=== PATIENT | male | born 1960 | race Caucasian/White ===

== ENCOUNTER → 2017-01-11 | Outpatient (CLI) | payer BC ==
[~2017-01-11] MED LIST: OXYC-57 PO
[2017-01-11 13:02] LABS: HEMATOCRIT 40.8 % (42-52); MEAN CELL VOLUME 88.3 fL (80-100); MEAN CORPUSCULAR HEMOGLOBIN 29.7 pg (25-34); MEAN CORPUSCULAR HGB CONC 33.6 g/dl (32-36); MEAN PLATELET VOLUME 10.3 fL (7.4-10.4); PLATELET COUNT 230 K/uL (130-400); RED BLOOD COUNT 4.62 M/uL (4.7-6.1); WHITE BLOOD COUNT 7.75 K/uL (4.8-10.8)
[2017-01-11 13:19] LABS: URINE APPEARANCE CLEAR (CLEAR); URINE BILIRUBIN NEG (NEG); URINE COLOR YELLOW; URINE NITRITE NEG (NEG); URINE PH 6.5 (4.5-7.5); URINE SPECIFIC GRAVITY 1.025 (1.000-1.030); UROBILINOGEN NEG (NEG)
[2017-01-11 13:20] LABS: MANUAL MICROSCOPIC REQUIRED? NO; REVIEW REQ? NO
[2017-01-11 13:34] LABS: ESTIMATED AVERAGE GLUCOSE 143 mg/dl; HA1C FLAG Normal (Normal)
[2017-01-11 13:37] LABS: ALT/SGPT 22 U/L (12-78); AST/SGOT 14 U/L (15-37); BLOOD UREA NITROGEN 20 mg/dl (7-18); BUN/CREATININE RATIO 29.1 (10-20); CALCIUM 8.3 mg/dl (8.5-10.1); CARBON DIOXIDE 24 mmol/L (21-32); CHLORIDE 109 mmol/L (98-107); CREATININE 0.67 mg/dl (0.60-1.40); GLUCOSE 105 mg/dl (70-99); POTASSIUM 3.9 mmol/L (3.5-5.1); SODIUM 141 mmol/L (136-145)
[2017-01-11 13:48] LABS: ALKALINE PHOSPHATASE 72 U/L (45-117); CHOLESTEROL 167 mg/dl (0-200); CHOLESTEROL/HDL RATIO 2.4; HDL CHOLESTEROL 69 mg/dl; LDL CHOLESTEROL CALCULATED 86 mg/dl; TRIGLYCERIDES 60 mg/dl (0-150); VERY LOW DENSITY LIPOPROT CALC 12 mg/dl
== END | disposition home or self-care (01) ==
LOC: C.LABMFLN 07:58
PROVIDERS: ATTEND Nurse Practitioner Family
DX: R53.83 Other fatigue (principal); F33.9 Major depressive disorder, recurrent, unspecified; M79.1 Myalgia; E78.5 Hyperlipidemia, unspecified; R73.01 Impaired fasting glucose

== ENCOUNTER 2024-07-11 08:29 | Observation (INO) ==
--- NOTE | 2024-06-16 15:19 | PAT Medication Instructions ---
Medication Instructions Date of Service June 16, 2024 Home Medications cholecalciferol (vitamin D3) 125 mcg (5,000 unit) tablet 125 mcg PO QAM metformin 500 mg tablet 1,000 mg PO BID rosuvastatin 40 mg tablet (Crestor) 20 mg PO QAM fluoxetine 20 mg capsule 20 mg PO QAM metoprolol succinate 50 mg tablet,extended release 24 hr 50 mg PO QAM apixaban 5 mg tablet (Eliquis) 5 mg PO BID bupropion HCl 100 mg tablet 100 mg PO QAM ASK your prescriber and surgeon apixaban 5 mg tablet (Eliquis) 5 mg PO BID DO NOT take the morning of surgery cholecalciferol (vitamin D3) 125 mcg (5,000 unit) tablet 125 mcg PO QAM metformin 500 mg tablet 1,000 mg PO BID Take morning of surgery With a small sip of water, OTHERWISE NOTHING TO EAT OR DRINK AFTER MIDNIGHT: rosuvastatin 40 mg tablet (Crestor) 20 mg PO QAM fluoxetine 20 mg capsule 20 mg PO QAM metoprolol succinate 50 mg tablet,extended release 24 hr 50 mg PO QAM bupropion HCl 100 mg tablet 100 mg PO QAM Take evening before surgery metformin 500 mg tablet 1,000 mg PO BID Other Notes If you have any questions please call us at [phone] or [phone] or [phone] or [phone]
--- NOTE | 2024-06-19 10:56 | Anesthesiology Consultation ---
Date of Service June 19, 2024 Assessment & Plan (1) Encounter for pre-operative examination: - Check BSG DOS - Infectious disease screening: Per assessment on 06/19/24- No known recent infectious disease contacts or current infectious disease symptoms. - Outpatient joint assessment: Pt currently scheduled for inpatient pathway. If surgeon requests review for outpatient joint pathway, patient is not recommended candidate for outpatient joint program from anesthesia standpoint based on available information. - S/P Right shoulder arthroscopy, RCR (06/01/22): LMA#5.0 [place] [facility] [place] Eliquis instructions: Per surgeon/prescriber. Per cardiology visit 06/09/24, "he can stop his anticoagulation 2 days before surgery and reinitiated when the risk of bleeding is acceptable understanding that he will be fully therapeutic within 2 hours of taking his first dose of Eliquis postoperatively." - Cardiology visit (06/09/24): "He is wearing his CPAP and is compliant with it. He notes he feels better with CPAP. He has had paroxysmal atrial fibrillation and is asymptomatic.. If his blood sugars remain elevated he would be a good candidate for an SGLT 2 inhibitor.. With regards to his shoulder surgery he can proceed at intermediate risk. I believe his risk is in the range of 2 to 3% and this includes heart attack, dying from cardiac causes, arrhythmias, and congestive heart failure. His greatest risk.. Can be asymptomatic afib with a rapid ventricular response." Chart Review Chart Review: Acceptable Risk for Surgery and Patient seen in Pre Admission Testing Teaching & Discussion Pre-Anesthesia Teaching/Discussion Notes: Instructed NPO after midnight before surgery,except medications with 15 cc of water. Medication instructions provided according to the PAT guidelines. History Surgery Operation Date: 07/11/24 08:00 Proposed Procedures p Left Total Shoulder Arthroplasty Reverse - Brayden Neff DO Height/Weight Height: 5 ft 7 in Weight: 97.9 kg Allergies Allergy/AdvReac Type Severity Reaction Status Date / Time No Known Allergies Allergy Verified 06/16/24 12:22 Medications Home Medications Medication Instructions Recorded Confirmed Last Taken cholecalciferol (vitamin D3) 125 125 mcg PO QAM 09/22/19 06/16/24 12/09/22 mcg (5,000 unit) tablet metformin 500 mg tablet 1,000 mg PO BID 10/30/19 06/16/24 12/09/22 rosuvastatin 40 mg tablet (Crestor) 20 mg PO QAM 10/27/20 06/16/24 12/09/22 fluoxetine 20 mg capsule 20 mg PO QAM 05/25/22 06/16/24 12/09/22 metoprolol succinate 50 mg 50 mg PO QAM 05/25/22 06/16/24 12/09/22 tablet,extended release 24 hr apixaban 5 mg tablet (Eliquis) 5 mg PO BID 06/16/24 06/16/24 Unknown bupropion HCl 100 mg tablet 100 mg PO QAM 06/16/24 06/16/24 Unknown Past Medical History Medical History (Updated 06/23/24 @ 08:34 by Gretta Arteaga) Anxiety Benign essential hypertension Noted per records Patient denies, indicates that current BP-related meds are for a. fib Diabetes History of atrial fibrillation Dx ~[address] Poole History of depression Hyperlipidemia Mitral insufficiency Echo 11/2023: Thickened mitral valve leaflets with bileaflet prolapse with mild to moderate mitral valve regurgitation, primarily in the first 2/3 of systole Sleep apnea CPAP (compliant) Exercise / Class Metabolic Activity II 4-5 Yardwork/Stairs/Walk up hill (one FS: No CP, no SOB) Past Family History Family History Father Heart disease Cancer Mother Parkinson disease Other Family history of atrial fibrillation No family history of adverse response to anesthesia Past Surgical History Surgical History H/O knee surgery right History of hernia repair left x 2 History of repair of right rotator cuff Right shoulder arthroscopy, RCR (06/01/22): LMA#5.0 + [place] [facility] [place] History of tonsillectomy and adenoidectomy Hx of colonoscopy Past Anesthesia History No Hx of Anesthesia Complications and No Family Hx of Anesthesia Complications History of PONV No Hx of PONV and No Hx of Motion Sickness Social History Smoking Status: Never smoker Do You Dip or Chew Tobacco: No Hx Alcohol Use: No Hx Substance Use: No substance use type: does not use Review of Systems Patient denies chest pain, shortness of breath, dyspnea on exertion, fever, chills, cough, wheezing. Physical Exam Vital Signs BP 108/69 P 78 TEMP 97.5 SP02 94%RA RESP 18 Physical Decreased cervical extension range of motion. Full TMJ range of motion. TMD 3 finger breaths Mallampati Score II Dentition: intact Lungs: clear throughout to auscultation Cardiac: regular rate and rhythm, no murmurs noted Spine: normal Carotid arteries: negative bruit Extremities: no LE edema Lab Results Anesthesia Preop Results Results Anesthesia Widget: WBC 7.59 K/ul (4.8-10.8) 06/19/24 Hgb 13.4 g/dl (14.0-18.0) L 06/19/24 Hct 40.5 % (42.0-52.0) L 06/19/24 Plt 244 K/uL (130-400) 06/19/24 Na 142 mmol/L (136-145) 06/19/24 K 4.4 mmol/L (3.5-5.1) 06/19/24 Cl 106 mmol/L (98-107) 06/19/24 CO2 28 mmol/L (21-32) 06/19/24 BUN 16 mg/dl (6-23) 06/19/24 Creat 0.83 mg/dl (0.6-1.4) 06/19/24 Glucose Level 171 mg/dl (70-99(Fasting)) H 06/19/24 PT 10.0 Seconds (9.0-12.0) 06/19/24 PTT 26 Seconds (21-31) 06/19/24 INR 0.9 (0.9-1.1) 06/19/24 HA1c 7.3 % (4.5-5.6) H 06/19/24 Blood Type A Negative 06/19/24 Antibody Screen NEGATIVE 06/19/24 Testing Electrocardiogram Date: 06/09/24 SR with premature supraventricular complexes. 77bpm. RBBB. Chest X-Ray Date: 06/19/24 Findings: + NAD Echocardiogram Date: 11/30/23 EF 60%. No regional wall motion abnormality. Mild concentric LVH. Grade 1 diastolic dysfunction. Trace to mild AR. Thickened mitral valve leaflets with bileaflet prolapse with mild to moderate mitral valve regurgitation, primarily in the first 2/3 of systole. Mild TR. Estimated PASP 27 mmHg. Normal sinus rhythm with occasional PACs and short runs of atrial tachycardia.
[~2024-07-11 08:29] MED LIST changes: +BUPIVACAINE 0.5 % 5 MG/1 ML PF 10ML VIAL ONE; -OXYC-57 PO; +SODIUM CHLORIDE 0.9% PF INJ 10 ML VIAL ONE
[2024-07-11] MEDS: dexAMETHasone**PF** 10 MG/ML VIAL IV SCH (09:41)
[2024-07-11] MEDS: ACETAMINOPHEN 500 MG TAB PO SCH ×2 (09:41→21:43)
[2024-07-11] MEDS: FAMOTIDINE 20 MG TAB PO SCH (09:41)
[2024-07-11] MEDS: LR 15ML/HR IV SCH (09:42)
[2024-07-11] MEDS: LR 60ML/HR IV SCH (09:42)
[2024-07-11] MEDS: GABAPENTIN 300 MG CAP PO SCH (09:42)
[2024-07-11] MEDS ORDERED: SUGAMMADEX SODIUM 200 MG/2 ML VIAL IV ONE (09:50)
[2024-07-11] MEDS ORDERED: PROPOFOL IV EMULSION 10 MG/ML 20 ML VIAL IV ONE (09:50)
[2024-07-11] MEDS ORDERED: ROCURONIUM BROMIDE 10 MG/ML 5 ML VIAL IV ONE (09:50)
[2024-07-11] MEDS ORDERED: MIDAZOLAM HCL 1 MG/ML 2ML VIAL ONE (09:50)
[2024-07-11] MEDS ORDERED: DEXAMETHASONE SOD INJ 4 MG/ML VIAL ONE (09:50)
[2024-07-11] MEDS ORDERED: fentaNYL citrate PF 100 MCG/2 ML VIAL ONE (09:50)
[2024-07-11] MEDS ORDERED: LIDOCAINE 2% 2 ML VIAL/AMP(20MG/ML) INFIL ONE (09:50)
[2024-07-11] MEDS ORDERED: ONDANSETRON INJ 2 MG/ML 2 ML VIAL ONE (09:50)
--- NOTE | 2024-07-11 10:18 | History & Physical Bridge Note ---
Date of Service July 11, 2024 History & Physical Bridge Note I have examined the patient, reviewed the History & Physical and in the interval since the performance of the History & Physical I have noted the following changes of clinical significance: no changes noted
[2024-07-11] MEDS ORDERED: fentaNYL citrate PF 100 MCG/2 ML VIAL IV PRN (11:06)
[2024-07-11] MEDS ORDERED: ATROPINE SULFATE 0.1 MG/ML 10ML SYR IV PRN (11:06)
[2024-07-11] MEDS ORDERED: KETOROLAC 30 MG/ML VIAL IV PRN (11:06)
[2024-07-11] MEDS ORDERED: PROMETHAZINE HCL 6.25 MG in SODIUM CHLORIDE 0.9% 50 ML IV PRN (11:06)
[2024-07-11] MEDS ORDERED: ONDANSETRON INJ 2 MG/ML 2 ML VIAL IV PRN ×2 (11:06→13:07)
[2024-07-11] MEDS: TRANEXAMIC ACID 1,000 MG **IV Pre-op IV SCH (11:19)
[2024-07-11] MEDS: ceFAZolin 2000MG 2,000 MG/15 ML SYR IV SCH ×2 (11:30→18:18)
[2024-07-11] MEDS: TRANEXAMIC ACID 1,000 MG **IV Intra-op IV SCH (12:39)
[2024-07-11] MEDS: ROPIV 0.5% 246mg, Ketorolac 30mg, EPINEPHrine 0.5mg in NSS INFIL SCH (12:39)
[2024-07-11] MEDS: ORTHO JOINT ANESTHETIC ONE (12:40)
--- NOTE | 2024-07-11 12:49 | Operative Report ---
PG Post Operative Report Pre & Post Diagnosis Operation Date: 07/11/24 11:00 Pre-Op Diagnosis: Left Rotator cuff arthropathy with tendinopathy long head of the biceps tendon Post-Op Diagnosis: Left Rotator cuff arthropathy with tendinopathy long head of the biceps tendon I identified the patient and participated in the time-out.: Yes Procedure Operation Date: 07/11/24 11:00 Actual Procedures p Left Total Shoulder Arthroplasty Reverse(Left) with open biceps tenodesis as a distinct and separate procedure (modifier 59)- Brayden Neff DO Surgeon Brayden Neff DO Eviction Specialist Sirena Millan PA-C Estimated Blood Loss 150 Findings Consistent with Post-Op Diagnosis Specimens Left humeral head Description of Procedure A CPT code modifier 59: The long head of the biceps tendon was enlarged and inflamed consistent with tendinopathy. A tenodesis was opted. This was a separate and distinct portion of the procedure. For these reasons, a CPT code modifier 59 will be added to this case. Implants used: I used a [employer] Comprehensive reverse total shoulder arthroplasty system with a size 12 press fit micro humeral stem, a +6 offset humeral tray and a standard humeral bearing, a 25 mm small augment baseplate with a 6.5 mm central screw and superior and inferior locking screws, and a size 36 mm eccentric glenosphere. Edwin arrived at [facility] for the above procedure. He was seen in the preoperative holding area and the operative extremity was identified and sig franck. He was given a preoperative antibiotic, TXA, and an interscalene nerve block. He was taken back to the operating room, laid on table in supine position, and put under general anesthesia. He was then put into the beachchair position. The shoulder was then prepped and draped in sterile fashion. A timeout was done and the patient and the operative extremity was properly identified. A deltopectoral approach was used. Dissection was taken down through the fascia and the deltoid was retracted laterally and the conjoined tendon was retracted medially. The anterior shoulder was exposed. The biceps groove was opened up and the biceps tendon was examined extensively. The biceps tendon demonstrated enlargement and inflammatory changes consistent with longstanding inflammation in the context of osteoarthritis and cuff arthropathy. The long head of the biceps tendon was then tenodesed to the upper border of the pectoralis major. This was a separate and distinct portion of the procedure. The subscapularis was then directly released off the lesser tuberosity with a peel technique. The inferior capsule was released and the humeral head was dislocated. A canal finding reamer was sent down the center of the humeral canal. Sequential reaming up to a size 12 reamer was done. Off that reamer, a proximal humeral resection guide was placed. The proximal humerus was resected at 135 of inclination and 25 of retroversion. Osteophytes were then removed and the glenoid was exposed. Time was spent doing a complete capsular and labral release. The glenoid guide was then placed in the inferior aspect of the glenoid. A 3.2 mm Steinmann pin was then placed into the glenoid vault at 10 of inclination. The glenoid baseplate was then reamed. The final size 25 mm small augment baseplate was then impacted in the place. A 6.5 mm central screw was then placed followed by superior and inferior locking screws. A 36 mm eccentric glenosphere was then impacted into place. Surrounding soft tissues were then injected with 100 cc an orthopedic pain control cocktail. The proximal humerus was then exposed. Sequential broaching of the humerus up to a size 12 broach was done. Off that broach a +6 offset humeral tray was trialed. The shoulder was then reduced, brought through a full range of motion, and felt to be stable. The shoulder was then dislocated and the broach was removed. The final size 12 micro press-fit humeral stem was then impacted into place. A standard humeral bearing was then snapped onto a +6 offset humeral tray. The humeral tray was then impacted onto the humeral stem. The shoulder was once again reduced, brought through a full range of motion, and felt to be stable. The subscapularis was poor quality and unable to be repaired. A dilute betadyne lavage was then done for 3 minutes. The joint was then irrigated with normal saline solution. Hemostasis was obtained. The interval was closed with 2-0 Vicryl suture. The skin was then closed with 2-0 Vicryl and braulio. A Silverlon dressing was placed and the arm was rested in a regular arm sling. He was then extubated and transferred to a hospital bed. He taken to the postanesthesia care unit in stable condition. He tolerated the procedure well. Sirena Millan PA-C, was present for the entire procedure. He was critical for patient positioning, prepping, draping, retraction exposure, wound closure and application of sterile dressing. I attest to the content of the Intraoperative Record and any orders documented therein. Any exceptions are noted below.
[2024-07-11] MEDS ORDERED: MAGNESIUM HYDROXIDE SUSP 30 ML UDC PO PRN (13:07)
[2024-07-11] MEDS ORDERED: METOCLOPRAMIDE HCL INJ 5 MG/ML 2 ML VIAL IV PRN (13:07)
[2024-07-11] MEDS ORDERED: diphenhydrAMINE Capsule 25 MG CAP PO PRN (13:07)
[2024-07-11] MEDS ORDERED: bisacodyL 10 MG SUPP PR PRN (13:07)
[2024-07-11] MEDS ORDERED: HYDROmorphone INJ 0.5 MG/0.5 ML SYR IV PRN (13:07)
[2024-07-11] MEDS ORDERED: oxyCODONE HCL IR 5 MG TAB (IMMEDIATE RELEASE) PO PRN (13:07)
[2024-07-11] MEDS ORDERED: NALOXONE HCL 0.4 MG/1 ML VIAL/CARP IV PRN (13:07)
--- NOTE | 2024-07-11 13:33 | XRay Report ---
XR shoulder LT min 2V routine HISTORY: 64 years-old Male Post shoulder surgery left shoulder arthroplasty COMPARISON: 02/12/2024 TECHNIQUE: 2 views of the left shoulder FINDINGS: Reverse total arthroplasty with overlying skin braulio, expected postoperative soft tissue swelling w ith deep tissue air. No unexpected opaque foreign bodies. IMPRESSION: Left shoulder arthroplasty with expected postoperative changes. ACT 112: Negative or not required by law. The above report was generated using voice recognition software. It may contain grammatical, syntax o r spelling errors. Electronically signed by: Wilbert Stephen M.D. 07/11/2024 1:32 PM
--- NOTE | 2024-07-11 14:01 | Anesthesiology Progress Note ---
Date of Service July 11, 2024 Anesthesia Post Procedure Vital Signs Vital Signs: Temp Pulse Pulse Resp BP Pulse Ox O2 Del Method 07/11/24 13:50 36.3 C L 90 16 121/75 94 Nasal Cannula 07/11/24 13:40 93 H 22 108/71 95 Nasal Cannula 07/11/24 13:30 89 18 104/58 L 95 Nasal Cannula 07/11/24 13:25 36.3 C L 98 H 20 110/60 98 Nasal Cannula 07/11/24 13:15 97 H 22 121/90 95 Nasal Cannula 07/11/24 13:08 108 H 20 150/88 H 92 Nasal Cannula 07/11/24 09:21 36.8 C 85 20 114/63 96 Room Air O2 Flow Rate 07/11/24 13:50 3 07/11/24 13:40 3 07/11/24 13:30 3 07/11/24 13:25 3 07/11/24 13:15 3 07/11/24 13:08 6 07/11/24 09:21 Transfer of Care Handoff Completed per policy Notes Mental Status: alert / awake / arousable Patient Amnestic to Procedure: Yes Nausea / Vomiting: adequately controlled Pain: adequately controlled Airway Patency, RR, SpO2: stable & adequate BP & HR: stable & adequate Hydration State: stable & adequate Anesthetic Complications: no major complications apparent
[2024-07-11] MEDS: KETOROLAC TROMETHAMINE 15 MG/ML VIAL IV SCH (14:42)
[2024-07-11] MEDS: metFORMIN HCL 500 MG TAB PO SCH (20:25)
[2024-07-11] MEDS: SENNA 8.6 MG TAB PO SCH (20:26)
[2024-07-11] MEDS: APIXABAN 5 MG TABLET PO SCH (20:26)
[2024-07-11] MEDS: DOCUSATE SODIUM 100 MG CAP PO SCH (20:26)
[2024-07-11 23:11] VITALS: TEMP 97.5
[2024-07-12 02:41] VITALS: O2SAT 94
--- NOTE | 2024-07-12 07:06 | Orthopedic Progress Note ---
Date of Service July 12, 2024 Assessment & Plan (1) Status post reverse total replacement of left shoulder: Overall he is doing very well. He is not having much pain in the left shoulder he will be seen by physical therapy today for ambulation and range of motion exercises. He can be discharged to home later today. He will follow-up orthopedics in 2 weeks. Gabriela Pineda was seen and examined at bedside this morning. Overall he is doing fairly well. He is not having much pain in the left shoulder. He has been up and ambulating to the bathroom. He has no complaints.. Review of Systems All systems reviewed & are unremarkable except as noted in HPI & below. Physical Exam On physical exam of the left shoulder, the dressing is clean and dry. He is wearing his sling as instructed. He has active motion of his hand and his wrist.. Results & Data Results & Data Laboratory Results . Diagnostic Findings Postoperative x-rays of the left shoulder show the prosthesis to be in anatomic alignment without any evidence of fracture complication, or loosening.. PG Care Time/CCT Total # of Minutes Spent Total Time Spent with Patient: Total time spent is greater than 50% in coordination of care (as documented) at patient's floor/unit and/or counseling patient: Coding Level of Care Code 29602 Post Operative Follow-Up Diagnoses Status post reverse total replacement of left shoulder Z96.612
--- NOTE | 2024-07-12 07:07 | Discharge Summary ---
Date of Service July 12, 2024 Principal Diagnosis Same as "Discharge Diagnosis" noted below under Discharge Instructions. Discharge Exam On physical exam of the left shoulder, the dressing is clean and dry. He is wearing his sling as instructed. He has active motion of his hand and his wrist.. Discharge Data Procedures Performed Operation Date: 07/11/24 11:00 Actual Procedures p Left Total Shoulder Arthroplasty Reverse(Left) - Brayden Neff DO Ordered Studies 07/11/24 05:00 US - OR guided needle placemen Routine Hospital Course (1) Status post reverse total replacement of left shoulder: On July 11, 2024 Edwin arrived at [facility] and underwent a left reverse shoulder replacement without complication. He had a general anesthetic and a left interscalene nerve block. Postoperatively he was placed in a sling and transferred to the general orthopedic floors. His hospital course was uneventful. On postop day #1, his vital signs were stable and his pain was well-controlled. He was able to participate well with physical therapy doing ambulation and range of motion exercises. He was then discharged to home. He will follow-up with orthopedics in 2 weeks. PG Care Time/CCT Total # of Minutes Spent Total Time Spent with Patient: Total time spent is greater than 50% in coordination of care (as documented) at patient's floor/unit and/or counseling patient: Discharge Plan Discharge Items Patient Disposition: Home - Self-Care Reason For Visit: Left RTC Tear Discharge Diagnosis: Left reverse shoulder replacement Activity: Per Instructions section Non-emergency contact: Surgeon Call non-emergency contact if: your wound has increased redness and your wound has increased drainage Follow-up/Referrals: Holly Fleming PA-C [Primary Care Provider] - Diet: Regular Addtl Attending Provider Instructions: Activity and Therapy Recommendations: * If you are using [facility] then therapy will be provided at your home until they feel you have accomplished all of your goals. * If you are using [facility] then Physical Therapy will be provided until they feel you are ready to start Outpatient Physical Therapy. * If you are not using home therapy then Outpatient Physical Therapy should start about 3-5 days from your day of surgery. Therapy will last about 8-12 weeks * Wear your sling for 3 weeks, unless otherwise instructed. You may remove your sling to shower and to dress, but otherwise, you should be in your sling at a ll times, including while sleeping * The shoulder replacement is very stable and you can use your hand while in the sling * You were shown a series of exercises in the hospital. Do these exercises daily including the exercises you were shown in physical therapy. Medications: * Narcotic You will likely be sent home from the hospital with a prescription for the narcotic pain medication that worked best throughout your stay. * Cefadroxil -take the antibiotic twice a day for 10 days to help prevent infection. * Other medications may be prescribed for specific circumstances. If you have any questions, please call the office at . * Resume previous home medications unless otherwise instructed Dressing Care: Leave the Silverlon dressing in place for 7 days. After 7 days you may remove the dressing. If the incision is not draining then you may leave the braulio open to air. If there is a little bit of drainage or if the braulio are getting stuck on your clothing then cover the incision with a dry dressing. The braulio will be removed at your 2 week follow-up appointment. Showering: You may shower with the Silverlon dressing in place. Do not let the shower spray hit the dressing directly. Pat the Silverlon dressing dry. If the dressing becomes wet underneath, then simply remove the dressing. Keep the incision dry until you are 7 days out from the day of surgery. After 7 days you may remove the Silverlon dressing and shower with the braulio e xposed. Let soapy water run over the braulio and pat them dry. Do not scrub or soak the incision. Diet: You may resume your previous diet. Things To Watch For: * Drainage from the incision site that occurs more than one week after your surgery. * Increased redness at the incision site. * Fever above 102 degrees Fahrenheit. * Unusual chest pain or shortness of breath. * Call [facility] at with any of the above problems Follow-Up Visit: Follow-up with Dr. Neff's office 2-3 weeks after your day of surgery. We will remove your braulio and answer any questions. If you have any additional questions or concerns, Dr Neff is usually in the office at the same time and will be available An appointment was probably scheduled when you signed-up for surgery in the office. If you have any questions call More detailed instructions as well as Frequently Asked Questions were provided in a folder by our office when you signed-up for surgery. Please review these instructions when you get home. If you have any further questions or concerns, please feel free to call the office at [phone] Pending Studies at Discharge: No Stand-Alone Forms: My [facility] Medications and DC Order Prescriptions: New oxycodone 5 mg Tablet 5 mg PO Q4H PRN (Reason: pain) Qty: 30 0RF cefadroxil 500 mg capsule 500 mg PO BID 10 Days Qty: 20 0RF Continued cholecalciferol (vitamin D3) 125 mcg (5,000 unit) tablet 125 mcg PO QAM metformin 500 mg tablet 1,000 mg PO BID rosuvastatin [Crestor] 40 mg tablet 20 mg PO QAM metoprolol succinate 50 mg tablet extended release 24 hr 50 mg PO QAM fluoxetine 20 mg capsule 20 mg PO QAM bupropion HCl [Wellbutrin] 100 mg Tablet 100 mg PO QAM Eliquis 5 mg Tablet 5 mg PO BID Discharge Orders: Discharge Order (Routine); Ordered 07/12/24 Ordered By: Brayden Neff Admission Data Admit Date/Time: 07/11/24 13:07 Attending Provider: Brayden Neff Admit Provider: Brayden Neff Primary Care Provider: Holly Fleming
[2024-07-12 07:18] VITALS: BP 123/75; PULSE 81; RESP 20
[2024-07-12] MEDS: MULTIVITAMIN TAB PO SCH (08:19)
[2024-07-12] MEDS: dexAMETHasone 4 MG TAB PO SCH (08:19)
[2024-07-12] MEDS: buPROPion HCl 100 MG TABLET PO SCH (08:19)
[2024-07-12] MEDS: CHOLECALCIFEROL 125 MCG (5,000 UNITS) TAB PO SCH (08:20)
[2024-07-12] MEDS: FLUoxetine HCL 20 MG CAP PO SCH (08:20)
[2024-07-12] MEDS: METOPROLOL SUCC 50MG EXT REL TAB PO SCH (08:20)
[2024-07-12] MEDS: ROSUVASTATIN CALCIUM 20 MG TAB PO SCH (08:20)
== END 2024-07-12 10:34 | disposition home or self-care (01) ==
LOC: ASU 08:29 → 3E 08:29